=== PATIENT | male | born 1995 | race Two or more races ===

== ENCOUNTER 2017-05-23 04:25 | Emergency (ER) | payer OTHER ==
[2017-05-23 04:50] VITALS: BMI 22.8
--- NOTE | 2017-05-23 05:06 | PDOC ---
History of Present Illness - General History Source: Patient Exam Limitations: No Limitations - History of Present Illness Initial Comments: 05/23/17 05:29 The patient is a 21 year old male, with a significant past medical history of colitis (last episode earlier this year), who presents to the emergency department with diffuse abdominal pain, nausea, and vomiting this morning. He reports the pain as cramoy and intermittent. He reports a couple episodes of "orange" emesis, nonbloody, with the last episode occurring upon ED arrival. He reportedly ate eggs and ham which other family members also ate. He states his family members are all feeling well. He denies sick contacts. He reportedly used a course of Valtrex about 2 weeks ago for a cold sore. He denies chest pain, shortness of breath, headache and dizziness. He denies fever, chills, diarrhea and constipation. He denies dysuria, frequency, urgency and hematuria. Allergies: NKDA PCP: Dr. Joaquina Ham <Chuyita Blanco - Last Filed: 05/23/17 05:29> <Alanis Lynn - Last Filed: 05/23/17 06:33> - General Chief Complaint: Pain Stated Complaint: ABD PAIN Time Seen by Provider: 05/23/17 05:06 Past History <Chuyita Blanco - Last Filed: 05/23/17 05:29> - Past Medical History Anemia: No Asthma: No Cancer: No Cardiac Disorders: No CVA: No COPD: No CHF: No Dementia: No Diabetes: No GI Disorders: Yes (colitis) Disorders: No HTN: No Hypercholesterolemia: No Liver Disease: No Seizures: No Thyroid Disease: No - Surgical History Abdominal Surgery: No Appendectomy: No Cardiac Surgery: No Cholecystectomy: No Lung Surgery: No Neurologic Surgery: No Orthopedic Surgery: No - Immunization History Immunization Up to Date: Yes - Suicide/Smoking/Psychosocial Hx Smoking Status: No Smoking History: Never smoked Have you smoked in the past 12 months: No Number of Cigarettes Smoked Daily: 0 Hx Alcohol Use: No Drug/Substance Use Hx: No Substance Use Type: Marijuana Hx Substance Use Treatment: No <Alanis Lynn - Last Filed: 05/23/17 06:33> - Past Medical History Allergies/Adverse Reactions: Allergies Allergy/AdvReac Type Severity Reaction Status Date / Time No Known Allergies Allergy Verified 05/23/17 04:50 Home Medications: Ambulatory Orders NK [No Known Home Medication] 05/23/17 Review of Systems - Review of Systems Able to Perform ROS?: Yes Comments:: 05/23/17 05:31 CONSTITUTIONAL: Absent: fever, no chills, no fatigue EYES: Absent: visual changes ENT: Absent: ear pain, no sore throat CARDIOVASCULAR: Absent: chest pain, no palpitations RESPIRATORY: Absent: cough, no SOB GI: (+) abdominal pain, nausea, vomiting, Absent: no constipation, no diarrhea GENITOURINARY: Absent: dysuria, no frequency, no hematuria MUSCULOSKELETAL: Absent: back pain, no arthralgia, no myalgia SKIN: Absent: rash NEURO: Absent: headache <Chuyita Blanco - Last Filed: 05/23/17 05:29> *Physical Exam - Vital Signs Last Vital Signs Temp Pulse Resp BP Pulse Ox 98 F 75 18 116/63 100 05/23/17 04:48 05/23/17 04:48 05/23/17 04:48 05/23/17 04:48 05/23/17 04:48 - Physical Exam Comments: 05/23/17 05:32 GENERAL: Well-appearing, well-nourished. No apparent distress. HEENT: Normocephalic, atraumatic. PERRL, EOM intact. CARDIOVASCULAR: Normal S1, S2. Regular rate and rhythm. PULMONARY: Clear to auscultation bilaterally. ABDOMEN: Soft, non-distended, non-tender. EXTREMITIES: Normal ROM in all four extremities. No gross deformities. SKIN: Warm, dry. No rash NEUROLOGICAL: No focal neurological deficits. <Chuyita Blanco - Last Filed: 05/23/17 05:29> - Vital Signs Last Vital Signs Temp Pulse Resp BP Pulse Ox 98 F 75 18 116/63 100 05/23/17 04:48 05/23/17 04:48 05/23/17 04:48 05/23/17 04:48 05/23/17 04:48 <Alanis Lynn - Last Filed: 05/23/17 06:33> ED Treatment Course - LABORATORY CBC & Chemistry Diagram: 05/23/17 06:15 05/23/17 06:15 <Alanis Lynn - Last Filed: 05/23/17 06:33> Medical Decision Making - Medical Decision Making 05/23/17 06:30 Pt with hx of colitis p/w cc of diffuse crampy abd pain and vomiting x <1 day, s /p eating eggs and ham yesterday. Abd completely nontender, no guarding/ rebound. Suspect gastritis/gastroenteritis. No focal tenderness, neg tejada's/ mcburney's - doubt appendicitis/[place]. - labs - IVF, pepcid, zofran - reassess, PO challenge - anticipate dc, will sign out to am team at 7am pending reassessment <Alanis Lynn - Last Filed: 05/23/17 06:33> *DC/Admit/Observation/Transfer - Attestations Scribe Attestion: 05/23/17 05:32 Documentation prepared by Chuyita Blanco, acting as medical receptionist biller for Alanis Lynn DO <Chuyita Blanco - Last Filed: 05/23/17 05:29> <Alanis Lynn - Last Filed: 05/23/17 06:33> - Referrals Referrals: Joaquina Ham MD [Primary Care Provider] - - Patient Instructions - Post Discharge Activity
[2017-05-23 05:43] LABS: URINE APPEARANCE CLEAR; URINE BILIRUBIN NEGATIVE (NEGATIVE); URINE BLOOD NEGATIVE (NEGATIVE); URINE COLOR STRAW; URINE GLUCOSE (UA) NEGATIVE (NEGATIVE); URINE KETONE NEGATIVE (NEGATIVE); URINE LEUK ESTERASE NEGATIVE (NEGATIVE); URINE NITRITE NEGATIVE (NEGATIVE); URINE PROTEIN NEGATIVE (NEGATIVE); URINE UROBILINOGEN NEGATIVE mg/dL (0.2-1.0)
[2017-05-23] MEDS ORDERED: FAMOTIDINE 20 MG/50 ML IVPB 20 MG/50 ML MG IVPB ONE ×2 (05:46→05:53)
[2017-05-23] MEDS ORDERED: SODIUM CHLORIDE 1,000 ML IV STA (05:46)
[2017-05-23] MEDS ORDERED: ONDANSETRON 4 MG/2 ML VIAL IVPUSH ONE (05:48)
[2017-05-23] MEDS ORDERED: ONDANSETRON 4 MG/2 ML VIAL ONE (05:52)
[2017-05-23 06:29] LABS: BASO % 0.3 % (0-2.0); EOS % 3.7 % (0-4.5); HEMOGLOBIN 13.7 GM/dL (11.7-16.9); MCH 27.8 pg (25.7-33.7); MCHC 33.4 g/dl (32.0-35.9); MEAN CELL VOLUME 83.1 fl (80-96); MEAN PLT VOLUME 7.4 fl (7.5-11.1); MONO % 5.2 % (3.8-10.2); NEUT % 77.8 % (42.8-82.8); PLATELET COUNT 209 K/MM3 (134-434); RBC 4.93 M/mm3 (4.00-5.60); RDW 12.9 % (11.9-15.9); WHITE BLOOD COUNT 9.6 K/mm3 (4.0-10.0)
[2017-05-23 06:57] LABS: ALBUMIN 3.9 g/dl (3.4-5.0); ALK PHOS 48 U/L (45-117); ANION GAP 7 (8-16); BILIRUBIN,TOTAL 0.6 mg/dL (0.2-1.0); BLOOD UREA NITROGEN 8 mg/dL (7-18); CALCIUM 8.7 mg/dL (8.5-10.1); CHLORIDE 106 mmol/L (98-107); CO2 27 mmol/L (21-32); CREATININE 0.7 mg/dL (0.7-1.3); GLUCOSE,RANDOM 135 mg/dL (74-106); LIPASE 92 U/L (73-393); POTASSIUM 3.5 mmol/L (3.5-5.1); SGOT/AST 19 U/L (15-37); SGPT/ALT 23 U/L (12-78); SODIUM 140 mmol/L (136-145); TOT PROT 6.7 g/dl (6.4-8.2)
[2017-05-23] MEDS ORDERED: DEXTROSE 5%-0.45% SALINE 1,000 ML IV SCH (07:30)
[2017-05-23 11:39] VITALS: BP 122/74; PULSE 55; TEMP 97.5
--- NOTE | 2017-05-23 12:10 | PDOC ---
*Physical Exam - Vital Signs Last Vital Signs Temp Pulse Resp BP Pulse Ox 97.5 F L 55 L 16 122/74 98 05/23/17 11:38 05/23/17 11:38 05/23/17 11:38 05/23/17 11:38 05/23/17 11:38 - Physical Exam Comments: 05/23/17 12:04 Patient endorsed to me by . Patient is a 21-year-old male with history of colitis who presented with diffuse abdominal pain, nausea and vomiting. On my evaluation, patient had diffuse abdominal pain most pronounced in the right lower quadrant. CT that and pelvis with by mouth and IV contrast was obtained and shows no evidence of acute intra-abdominal pathology. On reassessment, patient has no palpable abdominal tenderness and tolerates by mouth. CBC/CMP/UA within normal limit. Will discharge with Zantac twice a day for 2 weeks and GI follow-up for further evaluation and treatment. ED Treatment Course - LABORATORY CBC & Chemistry Diagram: 05/23/17 06:15 05/23/17 06:15 - ADDITIONAL ORDERS Additional order review: Laboratory Results 05/23/17 05/23/17 06:15 05:20 Sodium 140 Potassium 3.5 Chloride 106 Carbon Dioxide 27 Anion Gap 7 L BUN 8 D Creatinine 0.7 D Creat Clearance w eGFR > 60 Random Glucose 135 H D Calcium 8.7 Total Bilirubin 0.6 D AST 19 D ALT 23 Alkaline Phosphatase 48 Total Protein 6.7 Albumin 3.9 Lipase 92 Urine Color Straw Urine Appearance Clear Urine pH 6.0 Ur Specific [place] 1.009 Urine Protein Negative Urine Glucose (UA) Negative Urine Ketones Negative Urine Blood Negative Urine Nitrite Negative Urine Bilirubin Negative Urine Urobilinogen Negative Ur Leukocyte Esterase Negative 05/23/17 06:15 RBC 4.93 MCV 83.1 MCHC 33.4 RDW 12.9 MPV 7.4 L Neutrophils % 77.8 D Lymphocytes % 13.0 D Monocytes % 5.2 Eosinophils % 3.7 Basophils % 0.3 - RADIOLOGY Radiology Studies Ordered: Category Date Time Status ABDOMEN & PELVIS CT WITH CONTR [CT] Stat CT Scan 05/23/17 07:18 Completed - Medications Given in the ED: ED Medications Discontinued Medications Generic Name Dose Route Start Last Admin Trade Name Freq PRN Reason Stop Dose Admin Famotidine/Sodium Chloride 20 mg in 50 mls @ 100 mls/hr 05/23/17 05:46 06:24 Pepcid 20 Mg Premixed Ivpb - IVPB 05/23/17 06:15 100 mls/hr ONCE ONE Administration Sodium Chloride 1,000 mls @ 1,000 mls/hr 05/23/17 05:46 05/23/17 06:24 Normal Saline - IV 05/23/17 06:45 1,000 mls/hr ASDIR STA Administration Ondansetron HCl 4 mg 05/23/17 05:48 05/23/17 06:24 Zofran Injection IVPUSH 05/23/17 05:49 4 mg ONCE ONE Administration *DC/Admit/Observation/Transfer Diagnosis at time of Disposition: Abdominal pain Qualifiers: Abdominal location: generalized Qualified Code(s): R10.84 - Generalized abdominal pain Nausea and vomiting Qualifiers: Vomiting type: unspecified Vomiting Intractability: non-intractable Qualified Code(s): R11.2 - Nausea with vomiting, unspecified - Discharge Dispostion Disposition: HOME Condition at time of disposition: Stable - Referrals Referrals: Joaquina Ham MD [Primary Care Provider] - Arnaud Castrejon MD [Staff Physician] - - Patient Instructions Printed Discharge Instructions: DI for Abdominal Pain-Adult, Nausea and Vomiting-Adult Additional Instructions: Take Zantac-150 mg twice daily for the next 2 weeks. Follow-up with GI. Return immediately for severe pain, persistent vomiting, high fever. - Post Discharge Activity
== END 2017-05-23 12:45 | disposition home or self-care (01) ==
LOC: JER 04:25
PROC: 3E033GC Introduction of Other Therapeutic Substance into Peripheral Vein, Percutaneous Approach (ICD-10-PCS; principal; 2017-05-23)
PROC: 3E033GC Introduction of Other Therapeutic Substance into Peripheral Vein, Percutaneous Approach (ICD-10-PCS; 2017-05-23)
DX: R10.84 Generalized abdominal pain (principal); R11.2 Nausea with vomiting, unspecified; Z87.19 Personal history of other diseases of the digestive system
CPT/HCPCS: 36415; 74177-TC; 80053; 81003; 83690; 85025; 96374; 96375; 99282-25

== ENCOUNTER 2017-05-24 07:30 | Emergency (ER) | payer OTHER ==
[2017-05-24 07:41] VITALS: BP 110/74; PULSE 66; TEMP 97.4; BMI 22.8
[2017-05-24] MEDS ORDERED: METOCLOPRAMIDE HCL INJECTION 10 MG/2 ML VIAL ONE (08:28)
[2017-05-24] MEDS ORDERED: METOCLOPRAMIDE HCL INJECTION 10 MG/2 ML VIAL IVPB ONE (08:37)
[2017-05-24] MEDS ORDERED: LACTATED RINGERS SOLUTION 1000 ML INFUS.BAG IV ONE (08:38)
--- NOTE | 2017-05-24 08:39 | PDOC ---
History of Present Illness - General Chief Complaint: Migraine Headache Stated Complaint: PAIN Time Seen by Provider: 05/24/17 08:36 History Source: Patient Exam Limitations: No Limitations - History of Present Illness Initial Comments: CHIEF COMPLAINT: 21 y/o afebrile male with no significant PMH c/o headache today. HISTORY OF PRESENT ILLNESS: the patient states he does get headaches somewhat frequently and normally takes tylenol or motrin and it does away. He took tylenol this morning for the headache without relief. He states initially it was a 10/10 and he was sensitive to light. He states it's now a 6/10 and he's not as sensitive to light. he denies f/c, n/v/d, dizziness, CP, SOB, cough, runny nose, abd pain. Vital signs on arrival are within normal limits. REVIEW OF SYSTEMS: GENERAL/CONSTITUTIONAL: No fever/chills. No weakness. No weight change. HEAD, EYES, EARS, NOSE AND THROAT: No change in vision. No ear pain or discharge. No sore throat. MUSCULOSKELETAL: No joint or muscle swelling or pain. No neck or back pain. SKIN: No rash or easy bruising. NEUROLOGIC: +headache. No vertigo, loss of consciousness, or loss of sensation. PHYSICAL EXAM: GENERAL: The patient is awake, alert, and fully oriented, in no acute distress. HEAD: Normal with no signs of trauma. No pain with palpation of sinuses. ENT: Pupils equal, round and reactive to light, extraocular movements intact, sclera anicteric, conjunctiva clear. No photophobia. No nystagmus. No pain with EOMs. EXTREMITIES: Normal range of motion, no edema. NEUROLOGICAL: Normal speech, normal gait. CN II-XII grossly intact. Normal finger to nose. SKIN: Warm, dry, normal turgor, no rashes or lesions noted. Past History - Past Medical History Allergies/Adverse Reactions: Allergies Allergy/AdvReac Type Severity Reaction Status Date / Time No Known Allergies Allergy Verified 05/24/17 07:39 Home Medications: Ambulatory Orders Ondansetron [Zofran Odt -] 4 mg SL BID #14 od.tablet 05/23/17 Ibuprofen 800 mg PO TID #10 tablet 05/24/17 Anemia: No Asthma: No Cancer: No Cardiac Disorders: No CVA: No COPD: No CHF: No Dementia: No Diabetes: No GI Disorders: Yes (colitis) Disorders: No HTN: No Hypercholesterolemia: No Liver Disease: No Seizures: No Thyroid Disease: No - Surgical History Abdominal Surgery: No Appendectomy: No Cardiac Surgery: No Cholecystectomy: No Lung Surgery: No Neurologic Surgery: No Orthopedic Surgery: No - Immunization History Immunization Up to Date: Yes - Suicide/Smoking/Psychosocial Hx Smoking Status: No Smoking History: Never smoked Have you smoked in the past 12 months: No Number of Cigarettes Smoked Daily: 0 Information on smoking cessation initiated: No Hx Alcohol Use: No Drug/Substance Use Hx: Yes Substance Use Type: Marijuana Hx Substance Use Treatment: No *Physical Exam - Vital Signs Last Vital Signs Temp Pulse Resp BP Pulse Ox 97.4 F L 66 20 110/74 100 05/24/17 07:39 05/24/17 07:39 05/24/17 07:39 05/24/17 07:39 05/24/17 07:39 ED Treatment Course - Medications Given in the ED: ED Medications Discontinued Medications Generic Name Dose Route Start Last Admin Trade Name Rtuhie PRN Reason Stop Dose Admin Metoclopramide HCl 10 mg 05/24/17 08:37 05/24/17 08:38 Reglan Injection - IVPB 05/24/17 08:38 10 mg NOW ONE Administration Medical Decision Making - Medical Decision Making A/P: 21 y/o male with headache and photophobia since this morning. Plan is as follows: 1. IV fluids 2. IV reglan 3. IV toradol 4. Reassess The patient states he feels much better with complete resolution of headache. Will discharge to home with RX for ibuprofen. Suggested he drink lots of fluids and follow up with PCP. Pt instructed to return to the ER with any worsening or concerning symptoms. The patient verbalizes understanding of all instructions, has no further questions and is awaiting discharge. *DC/Admit/Observation/Transfer Diagnosis at time of Disposition: Headache Qualifiers: Headache type: unspecified Headache chronicity pattern: unspecified pattern Intractability: not intractable Qualified Code(s): R51 - Headache - Discharge Dispostion Disposition: HOME Condition at time of disposition: Improved - Referrals Referrals: Joaquina Ham MD [Primary Care Provider] - Call tomorrow - Patient Instructions Printed Discharge Instructions: DI for Headache Additional Instructions: Discharge Instructions: -Take Ibuprofen with food every 8 hours if needed for headache -Drink plenty of fluids -Follow up with Dr. Ham in 1 week -Return to the ER with any worsening or concerning symptoms. - Post Discharge Activity Forms/Work/School Notes: Back to Work
[2017-05-24] MEDS ORDERED: IBUPROFEN 600 MG TABLET (FP) PO ONE (08:45)
[2017-05-24] MEDS ORDERED: LORATADINE 10 MG TABLET PO ONE (08:45)
[2017-05-24] MEDS ORDERED: KETOROLAC TROMETHAMINE 30 MG/1 ML VIAL IVPUSH ONE (08:53)
[2017-05-24] MEDS ORDERED: KETOROLAC TROMETHAMINE 30 MG/1 ML VIAL ONE (09:10)
== END 2017-05-24 11:08 | disposition home or self-care (01) ==
LOC: JER 07:30
PROC: 3E033GC Introduction of Other Therapeutic Substance into Peripheral Vein, Percutaneous Approach (ICD-10-PCS; principal; 2017-05-24)
PROC: 3E033NZ Introduction of Analgesics, Hypnotics, Sedatives into Peripheral Vein, Percutaneous Approach (ICD-10-PCS; 2017-05-24)
DX: R51 Headache (principal)
CPT/HCPCS: 99282-25

== ENCOUNTER 2020-11-16 22:47 | Emergency (ER) | payer OTHER ==
[2020-11-16 23:36] VITALS: BP 120/77; PULSE 92; TEMP 98.6; BMI 27.3
== END 2020-11-17 00:21 | disposition left against medical advice (07) ==
LOC: JER 22:47
DX: J02.9 Acute pharyngitis, unspecified (principal); R06.02 Shortness of breath; R68.83 Chills (without fever)
CPT/HCPCS: 99281-25